=== PATIENT | male | born 1995 | race Caucasian/White ===

== ENCOUNTER 2016-10-22 12:27 | Emergency (ER) | payer SELFPAY ==
[~2016-10-22] VITALS: Ht 177.8 cm; Wt 70.0 kg
[2016-10-22 12:29] VITALS: BP 137/84; PULSE 80; RESP 16; TEMP 98.2; O2SAT 98
[2016-10-22] MEDS ORDERED: diphenhydrAMINE HCL 50 MG CAP PO ONE (12:45)
--- NOTE | 2016-10-22 12:45 | PD ---
HPI Chief Complaint: Skin Problem Time Seen by Provider: 12:40 Travel History International Travel<30 days: No Contact w/Intl Traveler<30days: No Traveled to known affect area: No History of Present Illness HPI 21-year-old male presents to emergency department for evaluation after being stung by a bee on his neck approximately one and a half hours ago. Patient has no known allergies to bee stings. He reports a very mild pain at the site approximately 1 out of 10. Denies any sensation of oral swelling or difficulty breathing. no other symptoms reported this time. [facility] Past Medical History Medical History: Denies Significant Hx Social History Alcohol Use: No Tobacco Use: No Substance Use: No Allergies-Medications (Allergen,Severity, Reaction): Coded Allergies: No Known Allergies (Unverified , 10/22/16) Review of Systems Except as stated in HPI: all other systems reviewed are Neg Physical Exam Narrative GENERAL: Well-nourished, well-developed male patient, ambulatory no acute distress SKIN: Focused skin assessment warm/dry. 2 cm in diameter blanchable erythematous wheal on the left lateral neck. HEAD: Normocephalic. EYES: No scleral icterus. No injection or drainage. ENT: Mucosa pink and moist. No erythema or exudates. No uvular edema. No uvular , palatal, or tonsillar deviation. Airway patent. Nasal turbinates appear normal without nasal blood, purulent drainage or septal hematoma. NECK: Supple, trachea midline. No JVD or lymphadenopathy. No stridor CARDIOVASCULAR: Regular rate and rhythm without murmurs, gallops, or rubs. RESPIRATORY: Breath sounds equal bilaterally. No accessory muscle use. GASTROINTESTINAL: Abdomen soft, non-tender, nondistended. Data Data Last Documented VS Vital Signs Date Time Temp Pulse Resp B/P (MAP) Pulse Ox O2 Delivery O2 Flow Rate FiO2 10/22/16 12:29 98.2 80 16 137/84 (101) 98 Orders Orders Diphenhydramine (Benadryl) (10/22/16 12:45) MDM Medical Decision Making Medical Screen Exam Complete: Yes Emergency Medical Condition: Yes Medical Record Reviewed: Yes Differential Diagnosis Local reaction versus anaphylaxis versus insect bite versus stings Narrative Course 21-year-old male presents to the emergency for evaluation following a bee sting approximately 1-1/2 hours ago. Patient appears well. He is having no sensation of oral swelling or difficulty breathing. There is no stridor. Patient is given Benadryl by mouth here. He is counseled on care and discharge home. He agrees to return immediately with any acute worsening symptoms. Diagnosis Primary Impression: Bee sting Qualified Codes: T63.441A - Toxic effect of venom of bees, accidental ( unintentional), initial encounter Referrals: Primary Care Physician Patient Instructions: General Instructions, Insect Bite or Sting (ED) Additional Instructions: Cool compresses to the area Do not scratch the area Continue Benadryl by mouth, 25-50 mg every 8 hours for the next 24 hours Return immediately to the emergency department with any acute worsening symptoms. Med/Other Pt SpecificInfo: No Change to Meds Disposition: 01 DISCHARGE HOME Condition: Stable Tiffanie Garcia Oct 22, 2016 12:45
== END 2016-10-22 13:00 | disposition home or self-care (01) ==
LOC: NETRI 12:27 → EDTENT 13:00
DX: T63.441A Toxic effect of venom of bees, accidental (unintentional), initial encounter (principal)
CPT/HCPCS: 99282; Q0163